=== PATIENT | female | born 1990 | race Caucasian/White ===

== ENCOUNTER 2019-02-12 11:06 | Emergency (ER) | payer MEDICAID ==
[~2019-02-12] VITALS: Ht 170.2 cm; Wt 81.0 kg
[2019-02-12 11:27] VITALS: BP 126/82
== END 2019-02-12 14:02 | disposition left against medical advice (07) ==
LOC: ER 11:13
DX: R06.02 Shortness of breath (principal); Z53.21 Procedure and treatment not carried out due to patient leaving prior to being seen by health care provider